=== PATIENT | male | born 1985 ===

== ENCOUNTER → 2016-12-21 | Day surgery (SDC) | payer OTHER ==
[2016-12-18 12:37] VITALS: BMI 45.0
[~2016-12-21] VITALS: Ht 177.8 cm; Wt 143.2 kg
[~2016-12-21] MED LIST: ATROPINE SULFATE 0.1 MG/ML 5ML SYR IV PRN; FENTANYL CITRATE INJ 50 MCG/1 ML 2 ML VIAL IV PRN; FENTANYL CITRATE INJ 50 MCG/1 ML 2 ML VIAL ONE; KETOROLAC TROMETHAMINE 30 MG/ML VIAL IV. PRN; LABETALOL HCL IV 5 MG/ML 20ML IV PRN; LACTATED RINGER'S 1000ML 1,000 ML IV SCH; LIDOCAINE HCL 2% 2 ML VIAL (20MG/ML) ONE; LIDOCAINE/EPINEPHRINE 1% 20 ML VIAL ONE; MIDAZOLAM HCL 1 MG/ML 2ML VIAL ONE; ONDANSETRON INJ 2 MG/ML 2 ML VIAL IV PRN; ONDANSETRON INJ 2 MG/ML 2 ML VIAL ONE; OXYCODONE/ACETAMINOPHEN 5-325 TAB PO PRN; PROPOFOL IV EMULSION 10 MG/ML 20 ML VIAL IV ONE; SODIUM CHLORIDE 0.9% 1000ML 1,000 ML IV SCH
[2016-12-21 05:50] VITALS: BP 161/79; PULSE 101; TEMP 36.8; O2SAT 93; Ht 177.8 cm; Wt 143.2 kg
[2016-12-21 06:38] LABS: MEAN CELL VOLUME 96.2 fL (80-100); MEAN CORPUSCULAR HEMOGLOBIN 32.2 pg (25-34); MEAN PLATELET VOLUME 10.4 fL (7.4-10.4); PLATELET COUNT 196 K/uL (130-400); RED BLOOD COUNT 4.78 M/uL (4.7-6.1); WHITE BLOOD COUNT 11.32 K/uL (4.8-10.8)
[2016-12-21 06:43] LABS: MEAN CORPUSCULAR HGB CONC 33.5 g/dl (32-36)
--- NOTE | 2016-12-21 07:02 | History & Physical Bridge Note ---
H&P Re-Evaluation Bridge Note: I have examined the patient, reviewed the History & Physical and in the interval since the performance of the History & Physical I have noted the following changes of clinical significance: No changes noted
[2016-12-21 07:16] LABS: BUN/CREATININE RATIO 7.6 (10-20); CALCIUM 8.6 mg/dl (8.5-10.1); CREATININE 0.99 mg/dl (0.60-1.40); POTASSIUM 3.7 mmol/L (3.5-5.1)
--- NOTE | 2016-12-21 08:02 | [facility] Post Operative Brief Note ---
Immediate Operative Summary Operative Date Dec 21, 2016. Pre-Operative Diagnosis Lesion left forehead Post-Operative Diagnosis Same Procedure(s) Performed Removal of Skin Lesion Left Forehead Surgeon Dr Wells Clinical Pharmacologist Surgeon(s) Kathrin Lincoln PA-C Estimated Blood Loss 5ml Findings Same Specimens A. Lesion left forehead Drains None Anesthesia General Complication(s) None Disposition Recovery Room / PACU
--- NOTE | 2016-12-21 08:05 | Discharge Instructions ---
Discharge Instructions Date of Service Dec 21, 2016. 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 Instructions / Follow-Up Instructions / Follow-Up MEDICATIONS: Resume previous medications unless instructed otherwise by your surgeon. * Ibuprofen 600 mg every 6 hours with food * Tylenol 650 mg every 4 hours, as needed for pain SPECIAL CARE INSTRUCTIONS: * May shower in 24 hours. Let water run over area and pat dry. * Leave steri strips on for 7 days and then remove. * Call the surgeon's office with any questions or concerns - (ex. temperature higher than 101 degrees F, excessive bleeding or pain). FOLLOW UP VISIT: If not already scheduled, please call the office to schedule a two week follow- up appointment. Office number Current Hospital Diet Patient's current hospital diet: Discharge Diet Recommended Diet: Regular Diet Procedures Procedures Performed: Removal of Skin Lesion Left Forehead Pending Studies Studies pending at discharge: no Medical Emergencies . Who to Call and When: Medical Emergencies: If at any time you feel your situation is an emergency, please call 911 immediately. . Non-Emergent Contact Non-Emergency issues call your: Primary Care Provider, Surgeon Call Non-Emergent contact if: your pain is worsening, wound has increased redness, wound has increased pain . "Provider Documentation" section prepared by David Wells. . VTE Core Measure Inpt VTE Proph given/why not?: Treatment not indicated
[2016-12-21 08:40] VITALS: BP 175/91; PULSE 91; TEMP 36.8; O2SAT 94
--- NOTE | 2016-12-21 08:46 | Anesthesiology Progress Note ---
Anesthesia Post Op Note Date & Time Dec 21, 2016 at 08:46 Vital Signs Pain Intensity: 0 Vital Signs Past 12 Hours Date Time Temp Pulse Resp B/P (MAP) Pulse Ox O2 Delivery O2 Flow Rate FiO2 12/21/16 08:25 36.5 96 16 153/86 97 Room Air 12/21/16 08:15 94 16 145/97 98 Room Air 12/21/16 08:05 36.3 106 16 113/98 98 Room Air 12/21/16 05:50 36.8 101 22 161/79 (106) 93 Room Air Notes Mental Status: alert / awake / arousable, participated in evaluation Pt Amnestic to Procedure: Yes Nausea / Vomiting: adequately controlled Pain: adequately controlled Airway Patency, RR, SpO2: stable & adequate BP & HR: stable & adequate Hydration State: stable & adequate Anesthetic Complications: no major complications apparent
[2016-12-21 09:10] VITALS: BP 161/82; PULSE 91; TEMP 36.7; O2SAT 96
--- NOTE | 2016-12-21 11:01 | OPERATIVE REPORT ---
DATE OF OPERATION: 12/21/2016 PREOPERATIVE DIAGNOSIS: Lesion, left forehead. POSTOPERATIVE DIAGNOSIS: Same. PROCEDURE: Removal of lesion, left forehead. SURGEON: Dr. David Wells. MANAGER OF QUALITY: Kathrin Dorantes PA-C. FINDINGS: The area was previously marked and was located over the lateral aspect of the left eyebrow. In caring incision down, there was what appeared to be a cyst wall and this may have been a sebaceous cyst. There were no other lesions identified. This measured between 1 and 1.5 cm. TECHNIQUE: The patient was given intravenous sedation and the area was prepped and draped in the usual sterile fashion. The area had been previously marked. Skin and subcutaneous tissue were anesthetized with 1% Xylocaine with epinephrine. An elliptical skin incision was made around the central opening and carried down through the skin and subcutaneous tissue and then the lesion was removed first on the superior side and the inferior side being sure to incorporate the entire lesion and the entire wall of what appeared to be the cyst. The deep dissection was then completed and the specimen was removed. The area was inspected. Bleeding was controlled with cautery. The deep layers were closed with interrupted 3-0 Vicryl. The superficial subcutaneous tissue was closed with running 4-0 Vicryl and skin was closed with 4-0 Monocryl in a running subcuticular fashion. Skin was cleansed, dried, benzoin placed, and Steri-Strips applied. The estimated blood loss was 5 mL. Sponge, needle and instrument counts were correct prior to closure. The patient tolerated the surgical procedure without complication and was transferred to recovery. I attest to the content of the Intraoperative Record and any orders documented therein. Any exception s are noted below.
== END | disposition home or self-care (01) ==
LOC: C.ACU 05:36
PROVIDERS: ATTEND Surgery
DX: L72.0 Epidermal cyst (principal); J45.909 Unspecified asthma, uncomplicated; F17.210 Nicotine dependence, cigarettes, uncomplicated